=== PATIENT | female | born 1945 | race Caucasian/White ===

== ENCOUNTER 2016-11-08 10:48 | Day surgery (SDC) | payer MEDICARE, BC ==
--- NOTE | 2016-11-08 12:13 | OR ---
Anesthesia Pre Procedure Eval Date of Service: 11/08/16 Pre Procedure Evaluation: Last Vital Signs Temp 36.0 C L 11/08/16 11:10 Pulse 62 11/08/16 11:10 Resp 16 11/08/16 11:10 BP 124/82 11/08/16 11:10 Pulse Ox 94 11/08/16 11:10 O2 Oxygen Delivery Method Room Air Anesthesia Pre Procedure Evaluation DATE: 11/08/2016 TIME: 1210 INDICATIONS: Occipital neuralgia, headaches neck pain status post fall. PAST MEDICAL HISTORY: Ms. Schuster has had a long history of intermittent headaches similar to the type she currently presents with. Since October of last year, after suffering a fall, she has suffered daily to near daily headaches. The pain originates in the right side of her neck to the base of the skull and radiating to just above the right eye. EXAM: Heart regular; lungs clear, on assessment she is quite tender at the site of both the greater and lesser occipital nerve sites. ASSESSMENT OF MEDICAL STATUS: Appropriate candidate for occipital nerve block. PLANNED PROCEDURE: Occipital nerve block right. Home Medications: HOME MEDICATIONS Escitalopram Oxalate [Lexapro] 10 mg PO DAILY 12/16/12 [Last Taken 12/21/12 09: 00] Pantoprazole Sodium [Protonix] 40 mg PO DAILY 12/21/12 [Last Taken 12/21/12 09: 00] Cetirizine HCl [Zyrtec] 10 mg PO DAILY 09/14/15 [Last Taken Unknown] Gabapentin 300 mg PO QID 09/14/15 [Last Taken Unknown] Melatonin 10 mg PO DAILY 09/14/15 [Last Taken Unknown] Ropinirole HCl [Requip] 0.25 mg PO DAILY 09/11/16 [Last Taken Unknown] Calcium Carbonate/Vitamin D3 [Calcium 600 + Vit D 200 Tablet] 1 each PO DAILY [Last Taken Unknown] Cholecalciferol (Vitamin D3) [Vitamin D3] 2,000 unit PO DAILY 11/07/16 [Last Taken Unknown] Ondansetron HCl [Zofran] 4 mg PO Q4H PRN 11/07/16 [Last Taken Unknown]
[2016-11-08] MEDS ORDERED: DEXAMETHASONE SOD PHOSPHATE 10 MG/ML VIAL IJ ONE (12:25)
[2016-11-08] MEDS ORDERED: LIDOCAINE HCL 10 ML VIAL IJ ONE ×2 (12:25)
--- NOTE | 2016-11-08 12:39 | OR ---
Anesthesia Procedure Note - Anesthesia Procedure Note Date of Service: 11/13/16 Narrative: Vital Signs - Last Taken Temp 36.0 C L 11/08/16 11:10 Pulse 62 11/08/16 11:10 Resp 16 11/08/16 11:10 BP 124/82 11/08/16 11:10 Pulse Ox 94 11/08/16 11:10 O2 Oxygen Delivery Method Room Air 11/08/16 12:34 Occipital nerve block: Indications: Occipital neuralgia, headaches, neck pain. Preoperative diagnosis: Occipital neuralgia Procedure: After the procedure and risks were explained, the patient accepted and understood, the patient was brought to OR #3. Ms. Madison was placed in sitting position with the neck flexed. The base of the skull was prepped with DuraPrep. Using sterile technique after the greater occipital area was palpated and the point of maximal discomfort was identified, using a #25-gauge needle the skin over the area was localized with 1% lidocaine in the face of the skull was contacted with 25-gauge needle. A 5 mL of lidocaine 1% with 5 mg of dexamethasone was injected. The same technique was used on the lesser occipital nerve with a bit of greater fanning of the mixture of lidocaine 1% and 5 mg of dexamethasone totaling 5 mL. Patient tolerated the procedure very well with no residual pain upon palpation and was then returned to [facility]. Pain on palpation preoperatively was 8-10 over 10 and 0/10 postoperatively. Breeder Hen Service Technician: Velvet Garcia RN Specimens: None. EBL: 0. 11/16/16 10:58 Postprocedural diagnosis: Occipital neuralgia, headaches, neck pain.
[2016-11-08 13:27] VITALS: BP 131/69
== END 2016-11-08 10:49 | disposition home or self-care (01) ==
LOC: AMB 10:48
PROVIDERS: ATTEND Nurse Practitioner
PROC: 3E0T3BZ Introduction of Anesthetic Agent into Peripheral Nerves and Plexi, Percutaneous Approach (ICD-10-PCS; 2016-11-08)
PROC: 3E0T33Z Introduction of Anti-inflammatory into Peripheral Nerves and Plexi, Percutaneous Approach (ICD-10-PCS; principal; 2016-11-08 12:20)
DX: M54.81 Occipital neuralgia (principal); Z68.29 Body mass index [BMI] 29.0-29.9, adult

== ENCOUNTER 2017-08-09 20:42 | Emergency (ER) | payer MEDICARE, BC ==
--- NOTE | 2017-08-09 22:26 | ERNOTE ---
Medical Problem HPI - General Chief Complaint: General Assessment Time Seen by Provider: 08/09/17 21:52 Source: patient, RN notes reviewed Exam Limitations: no limitations - Immun/Allergies/Home Medications Immunizations: IMMUNIZATION HX Immunizations Up to Date No History of Influenza Vaccine No Hx Pneumococcal Vaccination No Allergies/Adverse Reactions: Allergies acetaminophen [From Darvocet-N 100] Allergy (Unknown, Verified 11/08/16 11:15) ampicillin Allergy (Unknown, Verified 11/08/16 11:15) celecoxib Allergy (Unknown, Verified 11/08/16 11:15) codeine [Codeine] Allergy (Unknown, Verified 11/08/16 11:15) cyclobenzaprine Allergy (Unknown, Verified 11/08/16 11:15) ibuprofen Allergy (Unknown, Verified 11/08/16 11:15) mercury (elemental) [Mercury (Elemental)] Allergy (Unknown, Verified 11/08/16 11 :15) methadone [Methadone] Allergy (Unknown, Verified 11/08/16 11:15) pentazocine lactate [From Talwin] Allergy (Unknown, Verified 11/08/16 11:15) Phenothiazines Allergy (Unknown, Verified 11/08/16 11:15) phenylpropanolamine Allergy (Unknown, Verified 11/08/16 11:15) phenytoin Allergy (Unknown, Verified 11/08/16 11:15) pramipexole Allergy (Unknown, Verified 11/08/16 11:15) pramipexole di-HCl [From Mirapex] Allergy (Unknown, Verified 11/08/16 11:15) promethazine HCl [From Phenergan] Allergy (Unknown, Verified 11/08/16 11:15) propoxyphene Allergy (Unknown, Verified 11/08/16 11:15) propoxyphene napsylate [From Darvocet-N 100] Allergy (Unknown, Verified 11:15) Sulfa (Sulfonamide Antibiotics) [Sulfa(Sulfonamide Antibiotics)] Allergy ( Unknown, Verified 11/08/16 11:15) sulfadoxine Allergy (Unknown, Verified 11/08/16 11:15) tetanus and diphtheria toxoids [tetanus & diphtheria toxoids] Allergy (Unknown, Verified 11/08/16 11:15) Tetanus Vaccines and Toxoid [Tetanus] Allergy (Unknown, Verified 11/08/16 11:15) tramadol Allergy (Unknown, Verified 11/08/16 11:15) tramadol HCl [From Ultram] Allergy (Unknown, Verified 11/08/16 11:15) Influenza Virus Vaccines Adverse Reaction (Unknown, Verified 11/08/16 11:15) IVP dye Allergy (Severe, Uncoded 11/08/16 11:15) During kidney exam " said we could have lost you today" flu shot Allergy (Unknown, Uncoded 11/08/16 11:15) oranex Allergy (Unknown, Uncoded 11/08/16 11:15) Home Medications: HOME MEDICATIONS Escitalopram Oxalate [Lexapro] 10 mg PO DAILY 12/16/12 [Last Taken 11/07/16] Pantoprazole Sodium [Protonix] 40 mg PO DAILY 12/21/12 [Last Taken 11/07/16] Cetirizine HCl [Zyrtec] 10 mg PO DAILY 09/14/15 [Last Taken 11/07/16] Gabapentin 600 mg PO BID 09/14/15 [Last Taken 11/07/16] Melatonin 10 mg PO HS 09/14/15 [Last Taken 11/07/16] rOPINIRole HCL [Requip] 0.5 mg PO HS 09/11/16 [Last Taken 11/07/16] Cholecalciferol (Vitamin D3) [Vitamin D3] 2,000 unit PO DAILY 11/07/16 [Last Taken 11/07/16] Ondansetron HCl [Zofran] 4 mg PO Q4H PRN 11/07/16 [Last Taken 11/04/16] ASA/Calcium Carb/Mag/Aluminum [Sloan Plus 500 mg Caplet] 500 mg PO BID 08/09/17 [Last Taken Unknown] Nitroglycerin 0.4 mg SL PRN PRN 08/09/17 [Last Taken Unknown] Topiramate [Topamax] 12.5 mg PO DAILY 08/09/17 [Last Taken Unknown] HYDROmorphone HCL [Dilaudid] 0.5 - 1 tab PO Q6H PRN #16 tablet 08/10/17 [Last Taken Unknown] - History of Present History Narrative: Patient with history of radio ablation done on 07/31/2017 at [facility] in [place]. Over the last three days she has developed a burning sensation that goes up the right back side of her head. She feels that she just cannot take the pain anymore. She didn't call the [facility] until tonight, and was told to go to the local Emergency Department to be checked out. She has the paperwork from the procedure, along with a phone number to call when there are issues. Timing: constant, getting worse Severity: severe Modifying Factors - (Improves): Present: other - nothing Modifying Factors - (Worsens): Present: other - nothing Review of Systems - Review of Systems Constitutional: Absent: recent illness, fever, chills, weakness, fatigue EYE: Absent: eye pain, blurred vision ENT: Absent: ear pain, sore throat Respiratory: Absent: shortness of breath, cough Cardiology: Absent: chest pain, palpitations Gastrointestinal/Abdominal: Absent: nausea, vomiting, diarrhea, abdominal pain Genitourinary: Absent: frequency, pain, dysuria Musculoskeletal: Present: other - burning sensation up the right back side of her head Skin: Absent: rash Neurological: Absent: anxiety, depressed, emotional problems Endocrine: Present: no symptoms reported Hematologic/Lymphatic: Present: no symptoms reported Psych: Present: no symptoms reported - Patient's Past Medical History Patient History - Medical: Chronic Pain, GERD, Other Patient History - Cardiac/Respiratory: No pertinent hx Patient History - Cancer: No Hx of Cancer Patient History - Surgical Procedures: Tubal Ligation, Other Patient History - Other: None - Family History Mother Family History - Medical: Father Family History - Medical: , Arthritis - Social History Living Situations: home Abuse History: No History of abuse Psych History: No pertinent hx Smoking Status: Never smoker Have you smoked in the past 12 months: No Alcohol Use: none Drug Use: none - Immunizations Immunizations Up to Date: No Hx Pneumococcal Vaccination: No History of Influenza Vaccine: No Physical Exam - Physical Exam General Appearance: Present: wd/wn, alert, moderate distress, anxious, obese Head Exam: Present: normal inspection, no evidence of injury, tenderness - with palpation to the right posterior head Eye Exam: Normal inspection: bilateral, PERRL: bilateral, EOMI: bilateral Ears, Nose, Throat: Present: normal ENT inspection, normal pharynx Neck: Present: normal inspection, nontender Respiratory: Present: no respiratory distress, normal breath sounds, no accessory muscle use, chest nontender, lungs clear Cardiovascular/Chest: Present: regular rate, rhythm, no murmur, normal peripheral pulses Gastrointestinal/Abdominal: Present: normal bowel sounds, nontender, nondistended, soft Back Exam: Present: normal inspection, normal range of motion Extremity Exam: Present: normal inspection, non-tender, normal range of motion, no edema Neurological Exam: Present: alert, oriented, normal mood/affect, no motor/ sensory deficits Skin Exam: Present: normal color, warm/dry ED Progress - Vital Signs Patient's Vital Signs:: I have reviewed the patient's vital signs. Vital Signs: Vital Signs 08/09/17 08/09/17 20:52 20:57 Temperature 37.1 C 37.1 C Pulse Rate 67 67 Respiratory 15 15 Rate Blood Pressure 131/79 131/79 O2 Sat by Pulse 94 94 Oximetry - Progress/Reassessment Chief Complaint: General Assessment Progress Note-Subjective: 08/10/17 03:12 I called the [facility], and spoke with Chanel Rios MD about the patient's pain. She was not sure what to do, noting that the burning sensation is not what they worry about after radio ablation, they are more concerned about loss of sensation or movement than a burning sensation. We talked about possible pain meds, and the fact that the patient has a multitude of drug allergies. I decided to give the patient Dilaudid as she has tolerated that in the past. Patient didn't tolerate that initially as she got quite clammy, and fell asleep. She woke up feeling much better with decreased pain. I discussed the side effects of pain medication with the patient and her granddaughter. 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 Rose in 3-5 days, call [facility] Saturday to be seen again in the pain clinic for the burning sensation you have to the back of your head.) Prescriptions: HYDROmorphone HCL [Dilaudid] 0.5 - 1 tab PO Q6H PRN #16 tablet PRN Reason: Pain
[2017-08-10] MEDS ORDERED: HYDROmorphone HCL 1 MG/ML DISP.SYRIN IM ONE (01:09)
[2017-08-10] MEDS ORDERED: ONDANSETRON 4 MG TAB.RAPDIS PO ONE (01:11)
[2017-08-10] MEDS ORDERED: HYDROmorphone HCL 1 MG/ML DISP.SYRIN ONE (01:18)
[2017-08-10] MEDS ORDERED: ONDANSETRON 4 MG TAB.RAPDIS ONE (01:19)
[2017-08-10 02:26] VITALS: BP 115/65
== END 2017-08-10 03:09 | disposition home or self-care (01) ==
LOC: ER 20:42
DX: G89.3 Neoplasm related pain (acute) (chronic) (principal); G89.29 Other chronic pain; K21.9 Gastro-esophageal reflux disease without esophagitis

== ENCOUNTER 2017-09-04 06:51 | Day surgery (SDC) | payer MEDICARE, BC ==
[~2017-09-04 06:51] MED LIST: RINGER'S SOLUTION,LACTATED 1,000 ML IV PRN
[2017-09-04] MEDS ORDERED: RINGER'S SOLUTION,LACTATED 1,000 ML IV PRN (08:38)
[2017-09-04 10:27] VITALS: BP 140/88
--- NOTE | 2017-09-04 17:49 | OR ---
Operative Report - Dictated Report Narrative: Operative Report Date of operation: 09/04/2017 Preoperative diagnosis: Dysphagia. No recent dedicated colon studies. Possible family history of colon cancer Postoperative diagnosis: Hiatal hernia. Gastropathy (pathology and CLOtest pending). Normal colonoscopy Operation: EGD with biopsies. Colonoscopy Surgeon: Dr Dowell Anesthesia: VERONIKA BARRETT CRNA Indications for procedure: The patient is a 71-year-old female referred by . She has significant GERD symptoms and dysphagia for solid food. 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 Her last colonoscopy was in 2009. Findings: Hiatal hernia. Gastropathy. Capacious colon otherwise normal exam to the cecum Narrative of procedure: The patient was identified preoperatively, and prior to the administration of anesthetic a multidisciplinary timeout was observed EGD: With the patient in the recumbent position, a bite-block was placed, intravenous sedation was administered, and the patient's eyes covered with a towel. The flexible fiberoptic gastroscope was advanced into the posterior pharynx which appeared normal. The supraglottic larynx appeared normal. The cords appeared normal, moved well, and opposed in the midline. The scope was advanced under direct vision into the proximal esophagus which appeared normal. The esophagus appeared freely distensible with normal mucosa. The esophageal mucosa appeared normal down to the gastroesophageal junction which was sharp and noninflamed. The GE junction appeared normally distensible. There was a large hiatal hernia. The scope was advanced into the stomach proper which was insufflated with air. There was mild rachel gastric erythema with fundic polyp formation. There were no farzad ulcers or neoplastic-appearing lesions including a retroflexed view of the gastric fundus which clearly demonstrated the hiatal hernia. Scope was redirected toward the pylorus. The pylorus appeared patent. The scope was advanced into the duodenal bulb which appeared normal. The scope was advanced further to the horizontal portion of the duodenum which appeared normal, specifically the villous architecture appeared well preserved and clear bile was present. The scope was slowly withdrawn through the duodenal bulb with confirmation that no active ulcer was present. The scope was withdrawn into the stomach and bottling equipment sales representative biopsies of gastric mucosa obtained for CLOtest and pathology. The biopsy sites were seen to be hemostatic. The insufflated air was removed from the stomach and the scope withdrawn to above the GE junction which again was demonstrated to be widely patent. The scope was withdrawn from the patient, and this portion of the procedure terminated. COLONOSCOPY: The patient was then placed in the left lateral position, and the perineum was inspected. There was no evidence of pilonidal disease or skin breakdown. The external appearance of the anus was normal. Sphincter tone was good. The flexible fiberoptic colonoscope was inserted into the rectum which was insufflated with air. The rectal mucosa and submucosal vascular pattern appeared normal, the prep was seen to be complete. The scope was advanced through the sigmoid colon, up the descending colon, and around the splenic flexure where the triangular haustral architecture of the transverse colon was seen. The scope was advanced across the transverse colon, around the hepatic flexure to the cecum, where the confluence of tenia and the ileocecal valve were identified. The mucosa at this level appeared normal. The scope was then slowly withdrawn in a circular fashion so that all aspects of colonic mucosa were inspected. The colon was very capacious and character and redundant in course. The haustral architecture appeared well preserved throughout with no evidence of external compression. The mucosa and submucosal vascular pattern appeared normal, specifically there was no gross evidence to suggest colitis or inflammatory bowel disease and no AV malformations were seen. No farzad diverticulosis was demonstrated. No polyps were encountered. The scope was gradually withdrawn to the level of the rectum. As much insufflated air as possible was removed. The scope was withdrawn from the patient and the procedure terminated. The patient tolerated the anesthetic and procedure well without complication and was transferred back to the ambulatory surgery area awake and in stable condition. The patient remained stable throughout a period of postoperative observation. She denied abdominal discomfort, was able to tolerate by mouth intake, and was up without assistance. I shared the operative findings with the patient and she was given copies of the photographs which appear in the medical record. She was discharged home with instructions not to engage in hazardous activity today , but may resume normal activity tomorrow, and advance diet as tolerated. She is to continue those medications as listed in the history and physical exam. I made arrangements to contact her with the biopsy reports and will make additional recommendations for treatment and follow-up based upon those results. Reviewed and electronically signed
== END 2017-09-04 06:52 | disposition home or self-care (01) ==
LOC: AMB 06:51
PROVIDERS: ATTEND Surgery
PROC: 0DJD8ZZ Inspection of Lower Intestinal Tract, Via Natural or Artificial Opening Endoscopic (ICD-10-PCS; principal; 2017-09-04 07:50)
PROC: 0DB68ZX Excision of Stomach, Via Natural or Artificial Opening Endoscopic, Diagnostic (ICD-10-PCS; 2017-09-04 07:50)
DX: Z12.11 Encounter for screening for malignant neoplasm of colon (principal); K29.70 Gastritis, unspecified, without bleeding; K44.9 Diaphragmatic hernia without obstruction or gangrene; K21.9 Gastro-esophageal reflux disease without esophagitis; I10 Essential (primary) hypertension; D50.9 Iron deficiency anemia, unspecified; G47.33 Obstructive sleep apnea (adult) (pediatric); Z68.29 Body mass index [BMI] 29.0-29.9, adult
CPT/HCPCS: 43239; 87081; G0121